=== PATIENT | female | born 1995 | race Caucasian/White ===

== ENCOUNTER 2017-09-20 13:32 | Emergency (ER) | payer OTHER ==
[~2017-09-20] VITALS: Ht 157.5 cm; Wt 67.0 kg
[~2017-09-20 13:32] MED LIST: HYDR-3511 PO
[2017-09-20] MEDS ORDERED: ACETAMINOPHEN WITH CODEINE 300/30MG TABLET PO ONE (18:45)
[2017-09-20] MEDS ORDERED: KETOROLAC 30MG/ML VIAL IM ONE (20:00)
[2017-09-20 20:30] VITALS: BP 100/58
== END 2017-09-20 20:34 | disposition home or self-care (01) ==
LOC: ER 14:33
DX: R51 Headache (principal); Z90.49 Acquired absence of other specified parts of digestive tract
CPT/HCPCS: 96372; 99283; J1885; Z7610